=== PATIENT | male | born 1990 | race Caucasian/White ===

== ENCOUNTER 2018-12-07 21:06 | Observation (INO) | payer BC ==
[~2018-12-07] VITALS: Ht 177.8 cm; Wt 97.2 kg
[2018-12-07 21:39] LABS: BASO # 0.1 (0.0-0.2); BASO % 0.9 % (0.0-2.0); EOS # 0.1 (0.0-0.7); EOS % 1.1 % (0-4.0); GRAN # 4.9 (1.4-6.5); GRAN % 52.3 % (42.2-75.2); HEMATOCRIT 47.1 % (42.0-52.0); HEMOGLOBIN 16.8 g/dl (13.5-18.0); LYMPH # 3.5 (1.2-3.4); MEAN CELL VOLUME 84 fl (80.0-100.0); MEAN CORPUSCULAR HEMOGLOBIN 30 pg (27.0-31.0); MEAN CORPUSCULAR HGB CONC 36 g/dl (33.0-37.0); MEAN PLATELET VOLUME 10.2 fl (7.4-10.4); MONO # 0.8 (0.1-0.6); MONO % 8.1 % (1.7-9.3); PLATELET COUNT 337 K/mm3 (130-400); RED BLOOD COUNT 5.63 M/mm3 (4.20-5.60); REDCELL DISTRIBUTION WIDTH-CV 12.1 % (11.5-14.5)
[2018-12-07 21:58] LABS: ALANINE AMINOTRANSFERASE 60 U/L (21-72); ALBUMIN 4.6 gm/dL (3.5-5.0); ALKALINE PHOSPHATASE 90 U/L (50-136); ANION GAP 14 mmol/L (7-16); AST,SGOT 41 U/L (15-37); BILIRUBIN,TOTAL 0.6 mg/dL (0.0-1.0); BLOOD UREA NITROGEN 16 mg/dL (9-20); CALCIUM 9.4 mg/dL (8.4-10.2); CARBON DIOXIDE 23 mmol/L (22-30); CHLORIDE 102 mmol/L (98-107); CREATININE, serum 1.26 (0.66-1.25); GLUCOSE 161 mg/dL (74-106); POTASSIUM 3.7 mmol/L (3.4-5.0); SODIUM 140 mmol/L (137-145); TOTAL PROTEIN 8.3 gm/dL (6.4-8.2)
[2018-12-07 22:00] LABS: C-REACTIVE PROTEIN < 0.5 mg/dL (0.0-0.9)
--- NOTE | 2018-12-08 00:15 | NUR ---
pt arrived to medical unit. reports slight nausea. walked to bathroom and then returned to bed. no vomitting. pt refused SCD. IV flushes well, no redness, no swelling. neuro check insignificant. no needs at this time. call light in reach
[2018-12-08 00:23] VITALS: BP 143/82; PULSE 78; TEMP 98.2
[2018-12-08 04:00] VITALS: BP 133/67; PULSE 61; TEMP 98.1
--- NOTE | 2018-12-08 05:31 | NUR ---
pt had an uneventful night. reports no pain. refused SCD on. IV fluids running. nuero checks unchanged and insignificant. pt has not vomited since arrival to bedside. no needs at this time. call light in reach. at bed side.
[2018-12-08 05:59] LABS: BASO % 0.5 % (0.0-2.0); EOS % 0.5 % (0-4.0); GRAN # 5.6 (1.4-6.5); GRAN % 65.1 % (42.2-75.2); HEMATOCRIT 42.5 % (42.0-52.0); LYMPH # 2.2 (1.2-3.4); LYMPH % 25.3 % (20.0-51.0); MEAN CELL VOLUME 87 fl (80.0-100.0); MEAN CORPUSCULAR HEMOGLOBIN 30 pg (27.0-31.0); MEAN CORPUSCULAR HGB CONC 34 g/dl (33.0-37.0); MEAN PLATELET VOLUME 10.4 fl (7.4-10.4); MONO # 0.7 (0.1-0.6); MONO % 8.1 % (1.7-9.3); PLATELET COUNT 284 K/mm3 (130-400); RED BLOOD COUNT 4.87 M/mm3 (4.20-5.60); REDCELL DISTRIBUTION WIDTH-CV 12.4 % (11.5-14.5)
[2018-12-08 06:03] LABS: HEMOGLOBIN 14.4 g/dl (13.5-18.0)
[2018-12-08 06:06] LABS: CALCIUM 8.4 mg/dL (8.4-10.2); CREATININE, serum 1.25 (0.66-1.25); POTASSIUM 4.2 mmol/L (3.4-5.0)
--- NOTE | 2018-12-08 07:08 | NUR ---
report given to KARTIK Lopez. no needs at this time.
[2018-12-08 07:09] VITALS: BP 143/89; PULSE 63; TEMP 97.8
--- NOTE | 2018-12-08 08:03 | NUR ---
Assessment complete.patient awake,a/ox3.denies pain or discomfort at this time.patient resting in bed.reports feeling better and only experiencing mild episode of vertigo.This RN offered PRN medication but patient states he is okay.IVF infusing to LFA.denies nausea and vomitting at this time.will continue to monitor.call light in reach
[2018-12-08] MEDS ORDERED: ANTIVERT 25MG25 MG PO (09:36)
--- NOTE | 2018-12-08 09:49 | NUR ---
SW attended clinical rounds. Patient lives independently at home with his . Patient is independent with his ADLs and does not use any home health or DME. Patient does not have a PCP but would like to be set up with one. Doctor reports patient will likely discharge later today. No discharge needs at this time.
--- NOTE | 2018-12-08 11:01 | NUR ---
Initial visit; Patient and his family thanked [employer] for looking in on him and offering Spiritual Care. [employer] wished Clifford well.
--- NOTE | 2018-12-08 11:45 | NUR ---
PT DISCHARGE HOME AT THIS TIME.ALL DISCHARGE INSTRUCTIONS REVIEWED.PATIENT ENCOURAGED TO F/U WITH A PCP REGARDING HIS ELEVATED BP.PT VOICED UNDERSTANDING.ALL QUESTIONS ANSWERED.IV DISCONTINUED.ALL PAPERWORK SIGNED AND ALL BELONGINGS TAKEN. STAFF ESCORTED PT OUT.
== END 2018-12-08 11:48 | disposition home or self-care (01) ==
LOC: COL.ER 21:06 → MEDICAL 22:55
PROVIDERS: Emergency Medicine; Nurse Practitioner Family; ADMIT Internal Medicine
DX: R42 Dizziness and giddiness (principal)
CPT/HCPCS: G0378; J2060; J2405; J2550; J7030